=== PATIENT | male | born 1985 | race American Indian/Alaskan Native ===

== ENCOUNTER 2019-04-23 11:01 | Outpatient (CLI) | payer SELFPAY ==
--- NOTE | 2019-04-24 10:25 | CN ---
SERVICE DATE: 04/23/2019 INTRODUCTION: This 33-year-old male was referred by the [facility] to the Surgery Clinic for evaluation of that the patient claims he stepped on some glass and has a foreign body in his foot. He says he did this several months ago, noted it in December and still really bothers him. In the Surgery Clinic, examination does show a large lesion on the lateral side of the mid foot. This is most consistent with a planter wart, which is actually quite large. He also has 1 nodule in the middle of the ball of the foot, this seems consistent with a developing plantar wart, it does not look infected, and I think it is more of a wart than a foreign body. He also complains of some plantar warts on his right hand. ASSESSMENT: Plantar wart, left foot. PLAN: I think this would be larger than I would be able to do without at least some anesthesia/sedation in the operating room. This was referred by the resourcing advisor at [facility] and if they do not want to take care of that there because it might need more operative time, I would recommend referring this to the resourcing advisor at [facility] here in [place]; she has operating privileges and operates weekly. I think this left lateral large wart is more than I want to tackle right here. I have had my clinic contact the appropriate people to get a referral to the resourcing advisor at [facility]. [facility] /[id number]
== END 2019-04-23 11:20 | disposition home or self-care (01) ==
LOC: DL.GSCL 11:01
DX: B07.0 Plantar wart (principal)
CPT/HCPCS: 99201

== ENCOUNTER 2024-01-27 20:58 | Emergency (ER) | payer MEDICAID | END 2024-01-27 21:09 | disposition home or self-care (01) | LOC: DL.ED 20:58 | DX: S50.11XA Contusion of right forearm, initial encounter (principal); S50.811A Abrasion of right forearm, initial encounter; Y04.8XXA Assault by other bodily force, initial encounter | CPT/HCPCS: 99282; 99284 ==

== ENCOUNTER 2024-11-07 22:47 | Emergency (ER) | payer MEDICAID ==
[2024-11-07 23:14] LABS: BASOPHILS PERCENT AUTO 0.9 % (0.0-1.0); EOSINOPHILS PERCENT AUTO 0.3 % (1.0-3.0); HEMATOCRIT 47.7 % (40.0-54.0); HEMOGLOBIN 17.1 g/dL (14.0-18.0); LYMPHOCYTES PERCENT AUTO 12.7 % (20.5-50.1); MEAN CORPUSCULAR HEMOGLOBIN 34.3 pg (27.0-34.0); MEAN CORPUSCULAR HGB CONC 35.8 g/dL (33.0-35.0); MEAN CORPUSCULAR VOLUME 95.6 fL (80-100); MONOCYTES PERCENT AUTO 7.6 % (2-8); NEUTROPHILS PERCENT AUTO 78.5 % (42.2-75.2); PLATELET COUNT,PLT 107 10^3/uL (150-450); RED BLOOD CELL COUNT 4.99 10^6/uL (4.6-6.2); WHITE BLOOD CELL COUNT,WBC 6.5 10^3/uL (5.0-10.0)
[2024-11-07 23:35] LABS: ALBUMIN 4.2 g/dL (3.4-5.0); ANION GAP 20.9 mEq/L (7-13); BILIRUBIN TOTAL 0.6 mg/dL (0.2-1.0); BUN/CREATININE RATIO 6.3 (No establ ref range); CALCIUM 8.8 mg/dL (8.5-10.1); CREATININE 0.95 mg/dL (0.70-1.30); EST CRCL DRUG DOSING (CG) 104.4 mL/min; POTASSIUM,K 3.9 mmol/L (3.5-5.1); PROTEIN TOTAL,TP 8.5 g/dL (6.4-8.2)
[2024-11-08 00:58] LABS: APPEARANCE,URINE CLEAR (CLEAR); BILIRUBIN,URINE NEGATIVE (NEGATIVE); COLOR,URINE YELLOW (YELLOW); GLUCOSE,URINE NEGATIVE (NEGATIVE); KETONES,URINE TRACE (NEGATIVE); LEUKOCYTE ESTERASE,URINE NEGATIVE (NEGATIVE); NITRITE,URINE NEGATIVE (NEGATIVE); OCCULT BLOOD,URINE TRACE-INTACT (NEGATIVE); PH,URINE 6.5 (5.0-9.0); PROTEIN,URINE 100 (NEGATIVE); UROBILINOGEN,URINE 0.2 mg/dL (0.2-1.0)
[2024-11-08 01:06] LABS: AMORPHOUS SEDIMENT,URINE MODERATE /HPF (NOT SEEN); AMPHETAMINES,URINE NEGATIVE (NEGATIVE); BACTERIA,URINE RARE /HPF (0-FEW/HPF); BARBITURATES,URINE NEGATIVE (NEGATIVE); BENZODIAZEPINE,URINE NEGATIVE (NEGATIVE); EPITHELIAL CELLS,URINE FEW /HPF (NOT SEEN); MDMA (ECSTASY), URINE NEGATIVE (NEGATIVE); METHADONE,URINE NEGATIVE (NEGATIVE); METHAMPHETAMINES,URINE NEGATIVE (NEGATIVE); MUCUS,URINE FEW /LPF (NOT SEEN); OPIATES,URINE NEGATIVE (NEGATIVE); OXYCODONE,URINE NEGATIVE (NEGATIVE); PHENCYCLIDINE,URINE NEGATIVE (NEGATIVE); RBC,URINE 0-5 /HPF (0-5); TCA,URINE NEGATIVE (NEGATIVE); WBC,URINE 0-5 /HPF (0-5/HPF)
[2024-11-08] MEDS: MVI, Adult with Vitamin K 10 ML, Folic Acid 1 MG, Thiamine 100 MG in Lactated Ringers 1... IV ONE (01:13)
[2024-11-08] MEDS: cefTRIAXone 1 GM Vial IVPUSH ONE (01:14)
[2024-11-08] MEDS: Bacitracin Oint 1 GM U/D Packet TOP ONE (01:15)
== END 2024-11-08 03:00 | disposition home or self-care (01) ==
LOC: DL.ED 22:47
DX: S00.03XA Contusion of scalp, initial encounter (principal); S51.852A Open bite of left forearm, initial encounter; L03.114 Cellulitis of left upper limb; F10.129 Alcohol abuse with intoxication, unspecified; R94.5 Abnormal results of liver function studies; F17.210 Nicotine dependence, cigarettes, uncomplicated; Y04.0XXA Assault by unarmed brawl or fight, initial encounter; Y90.8 Blood alcohol level of 240 mg/100 ml or more
CPT/HCPCS: 36415; 70450; 72125; 73090; 80053; 80305; 80307; 81001; 83735; 84484; 85025; 93005; 96365; 96375; 99285; A9270; J0696; J3411; J7120; J3490

== ENCOUNTER 2024-12-20 00:14 | Emergency (ER) | payer MEDICAID ==
[2024-12-20] MEDS: Multivitamin Tab PO ONE (00:52)
[2024-12-20] MEDS: Thiamine 100 MG Tab PO ONE (00:52)
[2024-12-20] MEDS: Take Home: Cephalexin 500 MG Cap, 6 Cap Pack PO ONE (00:52)
[2024-12-20] MEDS: Folic Acid 1 MG Tab PO ONE (00:52)
[2024-12-20] MEDS: Cephalexin 500 MG Cap PO ONE (00:53)
== END 2024-12-20 01:03 | disposition home or self-care (01) ==
LOC: DL.ED 00:14
DX: S00.83XA Contusion of other part of head, initial encounter (principal); S40.021A Contusion of right upper arm, initial encounter; W50.0XXA Accidental hit or strike by another person, initial encounter; Y93.89 Activity, other specified
CPT/HCPCS: 99283; 99284; A9270

== ENCOUNTER 2025-04-29 18:56 | Emergency (ER) | payer MEDICAID ==
[2025-04-29 19:44] LABS: EOSINOPHILS PERCENT AUTO 0.5 % (1.0-3.0); HEMATOCRIT 46.7 % (40.0-54.0); HEMOGLOBIN 16.1 g/dL (14.0-18.0); LYMPHOCYTES PERCENT AUTO 25.1 % (20.5-50.1); MEAN CORPUSCULAR HGB CONC 34.5 g/dL (33.0-35.0); MEAN CORPUSCULAR VOLUME 98.5 fL (80-100); MONOCYTES PERCENT AUTO 15.3 % (2-8); NEUTROPHILS PERCENT AUTO 57.1 % (42.2-75.2); PLATELET COUNT,PLT 163 10^3/uL (150-450); RED BLOOD CELL COUNT 4.74 10^6/uL (4.6-6.2); WHITE BLOOD CELL COUNT,WBC 5.9 10^3/uL (5.0-10.0)
[2025-04-29] MEDS: MVI, Adult with Vitamin K 10 ML, Folic Acid 1 MG, Thiamine 100 MG in Lactated Ringers 1... IV ONE (19:58)
[2025-04-29 20:08] LABS: ANION GAP 15.3 mEq/L (7-13); CALCIUM 8.8 mg/dL (8.5-10.1); CREATININE 0.85 mg/dL (0.70-1.30); EST CRCL DRUG DOSING (CG) 119.28 mL/min; POTASSIUM,K 4.3 mmol/L (3.5-5.1)
== END 2025-04-29 21:36 | disposition home or self-care (01) ==
LOC: DL.ED 18:56
DX: F10.10 Alcohol abuse, uncomplicated (principal); F15.10 Other stimulant abuse, uncomplicated; F19.10 Other psychoactive substance abuse, uncomplicated; I10 Essential (primary) hypertension; F17.210 Nicotine dependence, cigarettes, uncomplicated; Y90.9 Presence of alcohol in blood, level not specified
CPT/HCPCS: 36415; 80048; 85025; 93005; 96365; 99284; J3411; J7120; J3490

== ENCOUNTER 2025-05-06 13:53 | Emergency (ER) | payer MEDICAID ==
[2025-05-06] MEDS ORDERED: Sodium Chloride 0.9% 10 ML Syringe FLUSH PRN (14:12)
[2025-05-06 14:27] LABS: BASOPHILS PERCENT AUTO 0.8 % (0.0-1.0); HEMATOCRIT 46.5 % (40.0-54.0); HEMOGLOBIN 16.6 g/dL (14.0-18.0); MEAN CORPUSCULAR HEMOGLOBIN 34.1 pg (27.0-34.0); MEAN CORPUSCULAR HGB CONC 35.7 g/dL (33.0-35.0); MEAN CORPUSCULAR VOLUME 95.5 fL (80-100); MONOCYTES PERCENT AUTO 13.6 % (2-8); NEUTROPHILS PERCENT AUTO 68.6 % (42.2-75.2); PLATELET COUNT,PLT 66 10^3/uL (150-450); RED BLOOD CELL COUNT 4.87 10^6/uL (4.6-6.2); WHITE BLOOD CELL COUNT,WBC 7.4 10^3/uL (5.0-10.0)
[2025-05-06] MEDS: MVI, Adult with Vitamin K 10 ML, Folic Acid 1 MG, Thiamine 100 MG in Lactated Ringers 1... IV ONE (14:35)
[2025-05-06] MEDS: Ondansetron 4 MG/2 ML SDV IVPUSH ONE (14:41)
[2025-05-06 14:51] LABS: INR 1.1 (0.9-1.2); LACTIC ACID 3.8 mmol/L (0.4-2.0); PROTHROMBIN TIME 11.2 SEC (9.0-12.0); PTT,PARTIAL THROMBOPLSTIN TIME 25.7 SEC (22.0-34.0)
[2025-05-06 14:54] LABS: ALANINE AMINOTRANSFERASE,ALT 111 U/L (16-63); ALBUMIN 3.7 g/dL (3.4-5.0); ALKALINE PHOSPHATASE 172 U/L (46-116); ANION GAP 25.2 mEq/L (7-13); ASPARTATE AMNIOTRANSFERASE,AST 204 U/L (15-37); BILIRUBIN TOTAL 4.7 mg/dL (0.2-1.0); BLOOD UREA NITROGEN,BUN 13 mg/dL (7-18); BUN/CREATININE RATIO 13.3 (No establ ref range); CARBON DIOXIDE,CO2 19 mmol/L (21-32); CHLORIDE,CL 97 mmol/L (98-107); CREATININE 0.98 mg/dL (0.70-1.30); GLUCOSE RANDOM 129 mg/dL (70-99); LIPASE 198 U/L (16-77); MAGNESIUM 1.5 mg/dL (1.8-2.4); POTASSIUM,K 4.2 mmol/L (3.5-5.1); PROTEIN TOTAL,TP 7.8 g/dL (6.4-8.2); SODIUM,NA 137 mmol/L (136-145)
[2025-05-06 14:56] LABS: ESTIMATED GFR 100 mL/min (>=60)
[2025-05-06 14:57] LABS: ETHANOL BLOOD MEDICAL 511 mg/dL (0)
[2025-05-06] MEDS: Iopamidol 612 MG/ML 100 ML Bottle IVPUSH ONE (14:58)
[2025-05-06] MEDS: Magnesium Sulfate 2 GM/50 mL 2 GM in Premix Bag 1 BAG IV ONE (15:40)
[2025-05-06 15:43] LABS: AMPHETAMINES,URINE NEGATIVE (NEGATIVE); BARBITURATES,URINE NEGATIVE (NEGATIVE); BENZODIAZEPINE,URINE NEGATIVE (NEGATIVE); MDMA (ECSTASY), URINE NEGATIVE (NEGATIVE); METHADONE,URINE NEGATIVE (NEGATIVE); METHAMPHETAMINES,URINE NEGATIVE (NEGATIVE); OPIATES,URINE NEGATIVE (NEGATIVE); OXYCODONE,URINE NEGATIVE (NEGATIVE); PHENCYCLIDINE,URINE NEGATIVE (NEGATIVE); TCA,URINE NEGATIVE (NEGATIVE)
[2025-05-06] MEDS: Sodium Chloride 0.9% 1,000 ML IV ONE (16:06)
== END 2025-05-06 17:00 | disposition left against medical advice (07) ==
LOC: DL.ED 13:53
DX: F10.920 Alcohol use, unspecified with intoxication, uncomplicated (principal); R94.5 Abnormal results of liver function studies; R74.8 Abnormal levels of other serum enzymes; R10.9 Unspecified abdominal pain; Y90.8 Blood alcohol level of 240 mg/100 ml or more
CPT/HCPCS: 36415; 74177; 80053; 80305-QW; 80307; 83605; 83690; 83735; 84484; 85025; 85610; 85730; 93005; 93010; 96361; 96365; 96375; 99284-25; 99285; J2405; J3411; J3475; J3490; J7030; J7120; Q9967

== ENCOUNTER 2025-07-22 20:48 | Emergency (ER) | payer MEDICAID ==
[2025-07-22] MEDS: Ketorolac 30 MG/ML SDV IM ONE (21:43)
== END 2025-07-22 22:44 | disposition home or self-care (01) ==
LOC: DL.ED 20:48
DX: S86.912A Strain of unspecified muscle(s) and tendon(s) at lower leg level, left leg, initial encounter (principal); I10 Essential (primary) hypertension; F17.210 Nicotine dependence, cigarettes, uncomplicated; X58.XXXA Exposure to other specified factors, initial encounter; Y93.89 Activity, other specified
CPT/HCPCS: 73564; 96372; 99283; A9270; J1885

== ENCOUNTER 2025-09-02 21:22 | Emergency (ER) | payer MEDICAID ==
[2025-09-02] MEDS ORDERED: Sodium Chloride 0.9% 10 ML Syringe FLUSH PRN (21:54)
[2025-09-02 22:03] LABS: BASOPHILS PERCENT AUTO 0.6 % (0.0-1.0); EOSINOPHILS PERCENT AUTO 0.3 % (1.0-3.0); LYMPHOCYTES PERCENT AUTO 10.7 % (20.5-50.1); MONOCYTES PERCENT AUTO 10.5 % (2-8); NEUTROPHILS PERCENT AUTO 77.9 % (42.2-75.2); PLATELET COUNT,PLT 92 10^3/uL (150-450); RED BLOOD CELL COUNT 3.57 10^6/uL (4.6-6.2); WHITE BLOOD CELL COUNT,WBC 11.7 10^3/uL (5.0-10.0)
[2025-09-02 22:17] LABS: INR 1.3 (0.9-1.2); PTT,PARTIAL THROMBOPLSTIN TIME 34.3 SEC (22.0-34.0)
[2025-09-02 22:37] LABS: ALANINE AMINOTRANSFERASE,ALT 40.0 U/L (16-63); ASPARTATE AMNIOTRANSFERASE,AST 166.0 U/L (15-37); BLOOD UREA NITROGEN,BUN 5.0 mg/dL (7-18); CARBON DIOXIDE,CO2 26.0 mmol/L (21-32); CHLORIDE,CL 98.0 mmol/L (98-107); CREATININE 0.58 mg/dL (0.70-1.30); EST CRCL DRUG DOSING (CG) 169.3 mL/min; GLUCOSE RANDOM 120.0 mg/dL (70-99); POTASSIUM,K 2.5 mmol/L (3.5-5.1); PROTEIN TOTAL,TP 6.2 g/dL (6.4-8.2); SODIUM,NA 138.0 mmol/L (136-145)
[2025-09-02 22:38] LABS: A/G RATIO 0.35; ESTIMATED GFR 126.0 mL/min (>=60)
[2025-09-02 22:39] LABS: BILIRUBIN TOTAL 26.4 mg/dL (0.2-1.0)
[2025-09-02 22:40] LABS: ETHANOL BLOOD MEDICAL 498.0 mg/dL (0)
[2025-09-03] MEDS: Potassium Chloride 10 MEQ Tab.ER PO ONE (00:46)
[2025-09-03] MEDS: MVI, Adult with Vitamin K 10 ML, Folic Acid 1 MG, Thiamine 100 MG in Lactated Ringers 1... IV ONE (00:47)
[2025-09-03] MEDS: Potassium Chloride 20 MEQ in Premix Bag 1 BAG IV ONE (00:47)
== END 2025-09-03 02:50 ==
LOC: DL.ED 21:22
DX: K92.1 Melena (principal); K70.30 Alcoholic cirrhosis of liver without ascites; F10.120 Alcohol abuse with intoxication, uncomplicated; E87.6 Hypokalemia; D64.9 Anemia, unspecified; I10 Essential (primary) hypertension; F17.210 Nicotine dependence, cigarettes, uncomplicated; Y90.8 Blood alcohol level of 240 mg/100 ml or more
CPT/HCPCS: 36415; 80053; 80307; 83735; 85025; 85610; 85730; 86850; 86900; 86901; 96365; 96366; 96368; 96375; 99285; A9270; J0696; J1808; J2470; J3411; J3480; J7120; J3490

== ENCOUNTER 2025-10-13 11:57 | Emergency (ER) | payer MEDICAID ==
[2025-10-13] MEDS ORDERED: Sodium Chloride 0.9% 10 ML Syringe FLUSH PRN (12:12)
[2025-10-13] MEDS: Ondansetron 4 MG/2 ML SDV IVPUSH ONE (12:16)
[2025-10-13 12:27] LABS: PLATELET COUNT,PLT 148 10^3/uL (150-450); RED BLOOD CELL COUNT 3.20 10^6/uL (4.6-6.2); WHITE BLOOD CELL COUNT,WBC 31.5 10^3/uL (5.0-10.0)
[2025-10-13 12:30] LABS: BASOPHILS PERCENT AUTO 0.1 % (0.0-1.0); EOSINOPHILS PERCENT AUTO 0.0 % (1.0-3.0); LYMPHOCYTES PERCENT AUTO 1.8 % (20.5-50.1); MONOCYTES PERCENT AUTO 8.9 % (2-8); NEUTROPHILS PERCENT AUTO 89.2 % (42.2-75.2)
[2025-10-13 12:39] LABS: INR 1.6 (0.9-1.2)
[2025-10-13 12:43] LABS: A/G RATIO 0.44; ALANINE AMINOTRANSFERASE,ALT 72 U/L (16-63); ASPARTATE AMNIOTRANSFERASE,AST 183 U/L (15-37); BILIRUBIN TOTAL 9.1 mg/dL (0.2-1.0); BLOOD UREA NITROGEN,BUN 10 mg/dL (7-18); CARBON DIOXIDE,CO2 12 mmol/L (21-32); CHLORIDE,CL 101 mmol/L (98-107); CREATININE 3.34 mg/dL (0.70-1.30); GLUCOSE RANDOM 85 mg/dL (70-99); POTASSIUM,K 3.8 mmol/L (3.5-5.1); PROTEIN TOTAL,TP 6.2 g/dL (6.4-8.2); SODIUM,NA 137 mmol/L (136-145)
[2025-10-13 12:45] LABS: ESTIMATED GFR 23 mL/min (>=60); ETHANOL BLOOD MEDICAL < 3 mg/dL (0)
[2025-10-13 12:55] LABS: LACTIC ACID 12.6 mmol/L (0.4-2.0)
[2025-10-13] MEDS: Norepinephrine Bit/D5W Premix 4 MG/250 ML BAG IV SCH (13:02)
[2025-10-13] MEDS: VANCOmycin 1.75 GM/350 ML 1.75 GM in Premix Bag 1 BAG IV ONE (13:03)
[2025-10-13 13:05] LABS: BAND PERCENT MAN 34 %; LYMPHOCYTES PERCENT MAN 1 % (20-50); METAMYELOCYTE PERCENT MAN 2; MONOCYTES PERCENT MAN 5 % (2-8); MYELOCYTE PERCENT MAN 2; SEG NEUTROPHILS PERCENT MAN 56 % (42-75)
[2025-10-13 13:06] LABS: PLATELET COUNT ESTIMATE ADEQUATE
[2025-10-13] MEDS: Magnesium Sulfate 2 GM/50 mL 2 GM in Premix Bag 1 BAG IV ONE (13:06)
[2025-10-13] MEDS: Hydrocortisone Sodium Succinate 100 MG/2 ML SDV IVPUSH ONE (13:06)
[2025-10-13 13:43] LABS: BASE EXCESS VENOUS -18.6 mmol/l ((-2)-(+3)); BICARBONATE,VENOUS 8 mmol/l (19-25); O2 DELIVERY DEVICE NASAL CANNULA; O2 SATURATION VENOUS 66.0 % (60-80); PCO2 VENOUS 24 mmHg (41-51); PO2 VENOUS 47 mmHg (35-42)
[2025-10-13 13:44] LABS: PH,VENOUS 7.17 (7.31-7.41)
== END 2025-10-13 15:03 ==
LOC: DL.ED 11:57
DX: A41.9 Sepsis, unspecified organism (principal); I10 Essential (primary) hypertension
CPT/HCPCS: 36415; 74176; 80053; 80307; 82272; 82803; 82947; 83605; 83690; 83735; 85025; 85610; 86140; 87040; 96361; 96365; 96366; 96368; 96375; 99285; A9270; J1720; J2405; J2543; J3375; J3475; J7030; J7040